=== PATIENT | female | born 1930 | race Caucasian/White ===

== ENCOUNTER → 2016-06-17 10:27 | Outpatient (CLI) | payer MEDICARE ==
[~2016-06-17 10:27] MED LIST: LEVOTHYROXINE50 MCG PO; METAMUCIL PACKE1 PKT PO; RISPERDAL0.5 MG PO; ZETIA10 MG PO
[2016-06-19 17:52] VITALS: BMI 21.5
== END | disposition home or self-care (01) ==
LOC: D.MRI 10:27
DX: F03.90 Unspecified dementia, unspecified severity, without behavioral disturbance, psychotic disturbance, mood disturbance, and anxiety (principal)

== ENCOUNTER 2016-06-19 09:50 | Inpatient (IN) | payer MEDICARE ==
[~2016-06-19] VITALS: Ht 162.6 cm; Wt 56.8 kg
[2016-06-19 10:28] LABS: BASOPHILS 0.2 % (0.0-2.0); EOSINOPHILS 0.6 % (0-7); HEMATOCRIT 39.8 % (36.0-48.0); HEMOGLOBIN 13.2 g/dL (12-16); IMMATURE GRANULOCYTES 0.1 % (0-5); LYMPHOCYTES 18.5 % (15-50); MCHC 33.2 g/dL (31.0-37.0); MCV 96.4 fL (80.0-100.0); MEAN PLATELET VOLUME 9.4 fL (7.4-10.4); MONOCYTES 8.5 % (2-11); NEUTROPHILS 72.1 % (40-80); PLATELET COUNT 172 10x3/uL (130-400); RBC 4.13 10x6/uL (4.00-5.40); RDW 13.1 % (11.5-14.5); WBC 8.5 10x3/uL (4.8-10.8)
[2016-06-19 10:33] LABS: APPEARANCE CLEAR (CLEAR); BILIRUBIN NEGATIVE (NEGATIVE); COLOR YELLOW (YELLOW); GLUCOSE NEGATIVE (NEGATIVE); KETONE NEGATIVE (NEGATIVE); LEUKOCYTE ESTERASE 1+ (NEGATIVE); NITRITE NEGATIVE (NEGATIVE); PROTEIN NEGATIVE (NEGATIVE); UROBILINOGEN NORMAL (NORMAL)
[2016-06-19 10:35] LABS: BACTERIA MODERATE /hpf (NONE SEEN); EPITHELIAL CELLS 0-5 /hpf (0-5); RED CELLS - URINE 0-5 /hpf (0-5)
[2016-06-19 10:56] LABS: BILIRUBIN - TOTAL 0.5 mg/dL (0.2-1.3); CALCIUM 9.7 mg/dL (8.5-10.1); CARBON DIOXIDE 29.1 mmol/L (21.0-32.0); CREATININE - SERUM 0.9 mg/dL (0.6-1.3); PROTEIN - SERUM 7.8 g/dL (6.4-8.2)
[2016-06-19 11:05] LABS: ANION GAP 11.7 mmol/L (8-16); POTASSIUM - SERUM 3.8 mmol/L (3.5-5.1)
--- NOTE | 2016-06-19 13:25 | NUR ---
Received patient from ED, ambulatory accompanied per ER staff and her daughter. Verbalized name and . Per patient and her daughter patient was at Dr. Wharton office on yesterday regarding patient onset of paranoia that started about two weeks ago, where patient is anxious and thinks somebody is after her and her family, and patient had start to call her neighbors about this paranoia... she was started on Risperdal on yesterday per MD visit and instructed to go to ER if conditioned worsen, which it did. Patient presents to [facility] alert and oriented to name and place, bridget Norwood present who answered most of questions, each time patient asked a question, she would start to answer then start talking about a different subject, she did say that she is get anxious easily and just " I start to shake." Daughters goal is for patient paranoia to be under control so that patient can return home with her spouse. Code status discussed and cyril has a living will for Full code status. Oriented to unit, admission handbook given to bridget Norwood with instructions given. All questions answered and understanding of information verbalized. Patient able to ambulate with standby assist of nurse to day room, once in room patient greeted her peers indiviually and was very social.
[2016-06-19 13:30] VITALS: BP 115/71
[2016-06-19] MEDS ORDERED: RISPERDAL0.5 MG PO (15:26)
[2016-06-19] MEDS ORDERED: LEVOTHYROXINE50 MCG PO (15:27)
[2016-06-19] MEDS ORDERED: ZETIA10 MG PO (15:27)
[2016-06-19] MEDS ORDERED: METAMUCIL PACKE1 PKT PO ×2 (15:28→15:29)
[2016-06-19 16:52] LABS: HEMOGLOBIN A1C 5.7 % (4.8-6.0)
[2016-06-19 16:59] LABS: CHOL - HDL RATIO 3.1 ratio (2.3-4.1); LDL-HDL RATIO 1.8 ratio (1.5-3.5); THYROID STIMULATING HORMONE 2.9 uIU/mL (0.36-3.74)
[2016-06-19 17:52] VITALS: BP 115/71; Ht 162.6 cm; Wt 56.8 kg
[2016-06-19 19:30] VITALS: BP 173/88
--- NOTE | 2016-06-19 20:52 | NUR ---
B) Recieved sitting in the day room, alert and oriented to self, calm and cooperative with staff, quiet, scanning vision, I) No medications this shift, redirected and oriented as needed, R) patient watching staff and oter patients quietly, P) Continue plan of care, continue to monitor.
[2016-06-19 23:27] VITALS: BP 173/88
--- NOTE | 2016-06-20 06:45 | NUR ---
Patient is at the desk and she is very paranoid, she thinks if people are gathered together they are talking about her, she has said "I've got to go home and take of my , he was in an accident, people are trying to harm us" She is exit seeking, keeps going in others rooms. She is upsetting other patients and she is not redirectable, when staff try to explain things to her, she gets agitated and mocks staff. She has no understanding and she believes staff are going to harm her.
--- NOTE | 2016-06-20 07:15 | NUR ---
Patient going into others rooms and she went into another paranoid patents room and got her upset. She will not redirect and will not listen. Staff has had to be direct and tell her she is in the hospital that she is having paranoia. She says "Oh yea, right" then on another breath she will say "Everyone thinks I am crazy anyway"
--- NOTE | 2016-06-20 07:20 | NUR ---
Redirected patient away from the door, explained to patient that her family is ok, she continues to try to exit seek.
--- NOTE | 2016-06-20 07:28 | NUR ---
Called Dr. Bolaons received Ativan 1 mg IM every 4 hours, see MAR
--- NOTE | 2016-06-20 07:34 | NUR ---
Went into patients room to give her an injection for her anxiety. She is not there. Staff began looking in other rooms, all over unit.
--- NOTE | 2016-06-20 07:40 | NUR ---
Called Dr. Bolanos and [facility] Super[facility] [employer] to let them be aware.
--- NOTE | 2016-06-20 07:45 | NUR ---
Called patients daughter and let her be aware. Daughter states she is going to come up here.
--- NOTE | 2016-06-20 07:50 | NUR ---
Police called to let them know patient is missing.
--- NOTE | 2016-06-20 07:55 | NUR ---
CALL PLACED TO 911 TO NOTIFY THEM SHE IS MISSING AND HAS NOT BEEN FOUND AFTER SEARCH OF HOSPITAL AND GROUNDS.HOME AD[address]ESS [address] GIVEN.THEY WILL LOOK FOR HER.
--- NOTE | 2016-06-20 08:45 | NUR ---
Patients daughter called and she asked if her mother is found what will happen? Explained to her that the police will bring her here, she said "Well, I will be taking her home" Said I will call the and call her right back.
--- NOTE | 2016-06-20 08:48 | NUR ---
Called patients daughter back and left a message stating that Dr. Bolanos will discharge her since she wants to take her home.
--- NOTE | 2016-06-20 10:00 | NUR ---
Went to go into room 1120 to make bed and this patient walked out of the bathroom. Patient remains confused.
--- NOTE | 2016-06-20 10:02 | NUR ---
Called compressor house operator to let him know patient is here on the unit, found in room 1120. He will call family, I called police station.
--- NOTE | 2016-06-20 10:05 | NUR ---
Two police officers arrived on unit to check on patient. Patient is standing at Nurses Station with this nurse, talking, but she remains paranoid and she is getting agitated, she wants to see her children before she does anything. Offered to take her down to breakfast.
--- NOTE | 2016-06-20 10:15 | NUR ---
Dr. Wharton called the unit to ask about patient, did let him know patient is found on the unit, she is safe.
--- NOTE | 2016-06-20 10:20 | NUR ---
Patients grandjamaal came and hugged her and patient began explaining to her that staff are trying to poison her and harm her, she is refusing all food from staff, she did however take a glass of ice water. Patient is confused as she thought her grandaughter was now a grandmother, but did recognize her and calmed down except to say that we are trying to harm her and she has to leave because the rest of the family has been in a car accident and they all need her, she has to take care of them.
--- NOTE | 2016-06-20 10:30 | NUR ---
Patients shaina madden came on unit and brought her donuts, patient then began saying that Dmitriy pipe and test supervisor was the one trying to kill her. Dmitriy was told this by chano so he stayed away not to upset her more.
--- NOTE | 2016-06-20 10:40 | NUR ---
Pateints daughter Mel came and she signed her out, all belongings packed, she does want ativan po prescribed, no other meds needed as she said they recently just received the risperdal prescription.
--- NOTE | 2016-06-20 10:45 | NUR ---
Asked patients daughter if she would like us to give her the ativan injection, she said "No" did offer ativan by mouth and daughter said "Yes" patient willing to take the pill provided by family not staff.
--- NOTE | 2016-06-20 10:46 | NUR ---
Patient is w/c and escorted with family to their car, she will be going home with her daughter.
--- NOTE | 2016-06-21 07:40 | SS ---
PATIENT:DEJNO SANCHEZ :32 MEDICAL RECORD: [id number] DISCHARGE SUMMARY ADMISSION DATE: 06/19/16 DISCHARGE DATE: 06/20/16 Short Stay Report IDENTIFYING DATA: This is an 85-year-old white female, who was admitted through [facility] due to worsening paranoia over the last 2 weeks prior to admission. The patient had been seen by her primary care physician and had been previously started on Risperdal 0.5 mg twice a day. Despite this, the patient continued to exhibit worsening delusions, specifically that someone was trying to harm her or her family. She became increasingly agitated, defensive and evasive. She had been previously diagnosed with dementia, but was not undergo formal treatment for this. The patient's daughter felt that the patient needed hospitalization. PAST MEDICAL HISTORY: The patient has been treated by her primary care physician for hypercholesterolemia and hypothyroidism. MEDICATION AT THE TIME OF ADMISSION: Included Zetia, Synthroid and Risperdal. FAMILY HISTORY: Noncontributory. ALLERGIES: None listed. SOCIAL HISTORY: No substance abuse issues were noted. The patient had been cared for by her daughter. COURSE IN THE HOSPITAL: The patient did show some degree of agitation and restlessness. She was given p.r.n. Ativan, but continued to show considerable paranoia. On the morning following admission, the patient hid herself in the bathroom of her room and was quite fearful. Eventually, she was found by the staff, family was contacted and the family expressed the opinion that they would rather care for the patient at home since she was so distraught. At the time of discharge, the patient was not physically combative. She was stable from a medical standpoint and therefore was discharged. 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 AXIS II: No diagnosis. AXIS III: Hypothyroidism, hypercholesterolemia. AXIS IV: Moderate. AXIS V: 38. PLAN: The patient is discharged back to the care of the family. She will be followed up through her primary care physician. TRANSINT:[id number] Voice Confirmation ID: [id number] DOCUMENT ID: [id number] SHORT STAY SUMMARY [id number] DEJON SANCHEZ EULALIO BRICENO III, MAREK Mendez MD at 0740 CC: [id number] DICTATION DATE: 06/20/16 1408 SCARFER OPERATOR: 06/20/16 1533 DIS IN 06/20/16 [facility] [address] [place] [address]
[2016-06-22 05:14] LABS: RAPID PLASMA REAGIN Non Reactive (Non Reactive)
[2016-06-22 10:19] LABS: FOLATE (FOLIC ACID) - SERUM >20.0 ng/mL (>3.0)
[2016-06-22 11:16] LABS: VITAMIN D 25 HYDROXY 36.7 ng/mL (30.0-100.0)
== END 2016-06-20 11:00 | disposition home or self-care (01) | DRG 57 ==
LOC: D.ER 09:50 → D.PSYCH 13:38
PROVIDERS: Family Medicine; ADMIT Psychiatry & Neurology Psychiatry
DX: G30.9 Alzheimer's disease, unspecified (principal); F02.81 Dementia in other diseases classified elsewhere, unspecified severity, with behavioral disturbance; E03.9 Hypothyroidism, unspecified; E78.00 Pure hypercholesterolemia, unspecified